=== PATIENT | female | born 1970 | race Caucasian/White ===

== ENCOUNTER 2019-12-18 13:02 | Emergency (ER) | payer BC ==
[~2019-12-18] VITALS: Ht 157.5 cm; Wt 72.7 kg
[2019-12-18 13:02] VITALS: BP 139/92
[2019-12-18] MEDS ORDERED: ONDANSETRON ODT 4 MG TAB.RAPDIS PO ONE (13:15)
[2019-12-18] MEDS ORDERED: HYDROcodone/APAP 5/325MG 1 TAB TABLET PO ONE (13:15)
--- NOTE | 2019-12-18 13:23 | PHYS DOC ---
Adult General Chief Complaint Chief Complaint: WRIST PAIN [facility] HPI 49-year-old female presents with right hand, wrist, and elbow pain. The patient was on a stepladder when she missed the last step and fell backwards. She stuck out her right hand to catch herself and landed with her weight on her right arm and hand. She currently has pain in the right thumb and right wrist, up to the elbow. She also hit her left knee a little bit, but is able to walk and is not worried about that. She rates the pain as severe. She does not want to move her hand or wrist. She did not hit her head. She denies loss of consciousness. She has no other complaints at this time. Review of Systems Review of Systems Constitutional: Denies fever or chills [] Eyes: Denies change in visual acuity, redness, or eye pain [] HENT: Denies nasal congestion or sore throat [] Respiratory: Denies cough or shortness of breath [] Cardiovascular: No additional information not addressed in HPI [] GI: Denies abdominal pain, nausea, vomiting, bloody stools or diarrhea [] : Denies dysuria or hematuria [] Musculoskeletal: Right hand wrist and elbow pain[] Integument: Denies rash or skin lesions [] Neurologic: Denies headache, focal weakness or sensory changes [] Endocrine: Denies polyuria or polydipsia [] All other systems were reviewed and found to be within normal limits, except as documented in this note. Physical Exam Physical Exam Constitutional: Well developed, well nourished, no acute distress, non-toxic appearance. [] HENT: Normocephalic, atraumatic, bilateral external ears normal, oropharynx moist, no oral exudates, nose normal. [] Eyes: PERRLA, EOMI, conjunctiva normal, no discharge. [] Neck: Normal range of motion, no tenderness, supple, no stridor. [] Cardiovascular:Heart rate regular rhythm, no murmur [] Lungs & Thorax: Bilateral breath sounds clear to auscultation [] Abdomen: Bowel sounds normal, soft, no tenderness, no masses, no pulsatile masses. [] Skin: Warm, dry, no erythema, no rash. [] Back: No tenderness, no CVA tenderness. [] Extremities: Right hand and wrist pain with even minimal movement. Exam mostly deferred due to pain.[] Neurologic: Alert and oriented X 3, normal motor function, normal sensory function, no focal deficits noted. [] Psychologic: Affect normal, judgement normal, mood normal. [] EKG EKG [] Radiology/Procedures Radiology/Procedures [] Impressions: EXAM: AP, lateral and radial head views of the right elbow DATE: 12/18/2019 1:14 PM INDICATION: Fall, right elbow pain COMPARISON: No Prior FINDINGS: Deformity of the right radial head with mild articular surface collapse/depression. No significant right elbow joint effusion is seen. No right elbow joint dislocation. IMPRESSION: 1. Deformity of the right radial head with mild articular surface collapse/depression may be chronic as no significant right elbow joint effusion is seen. However acute fracture is not excluded and if further imaging is required, CT would provide additional details. Electronically signed by: Nick Bhatti MD (12/18/2019 1:49 PM) [id number] DICTATED AND SIGNED BY: NICK BHATTI MD DATE: 12/18/19 1348 CC: PARESH ELIAS DO; ASHTYN WINTER MD ~ EXAM: 1. 3 views right hand 2. 3 views right wrist DATE: 12/18/2019 1:11 PM INDICATION: Right hand and wrist pain after fall COMPARISON: No Prior FINDINGS: No evidence of acute fracture or dislocation. 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 Soft tissue swelling about the right wrist. IMPRESSION: No evidence of acute fracture or dislocation. If there is persistent clinical concern for fracture, follow-up radiographs in 10-14 days is recommended. Electronically signed by: Nick Bhatti MD (12/18/2019 1:45 PM) [email or web address] DICTATED AND SIGNED BY: NICK BHATTI MD DATE: 12/18/19 1341 CC: PARESH ELIAS DO; ASHTYN WINTER MD ~ Course & Med Decision Making Course & Med Decision Making Pertinent Labs and Imaging studies reviewed. (See chart for details) The patient's x-rays are negative for acute fracture. There is some collapse of the radial head joint. See official report for details. The patient has no significant pain at the base of the thumb. I will place her in a thumb spica splint at this time and discharge her with pain medication. If her pain does not improve in the next 1 week, she will seek further evaluation and imaging. She is stable for discharge at this time. [] Dragon Disclaimer Dragon Disclaimer This electronic medical record was generated, in whole or in part, using a voice recognition dictation system. Departure Departure: Impression: Primary Impression: Right wrist sprain Additional Impression: Fall from ladder Disposition: 01 HOME, SELF-CARE Condition: STABLE Referrals: ASHTYN WINTER MD (PCP) Patient Instructions: Wrist Sprain with [facility]hab[facility] Scripts Hydrocodone Bit/Acetaminophen (NORCO 5-325 TABLET) 1 Each Tablet 1-2 TAB PO PRN Q6HRS PRN for PAIN, #20 TAB 0 Refills Prov: PARESH ELIAS DO 12/18/19 Problem Qualifiers Primary Impression: Right wrist sprain Encounter type: initial encounter Qualified Codes: S63.501A - Unspecified sprain of right wrist, initial encounter Additional Impression: Fall from ladder Encounter type: initial encounter Qualified Codes: W11.XXXA - Fall on and from ladder, initial encounter PARESH ELIAS DO Dec 18, 2019 13:23
--- NOTE | 2019-12-18 13:48 | RAD ---
EXAM: 1. 3 views right hand 2. 3 views right wrist DATE: 12/18/2019 1:11 PM INDICATION: Right hand and wrist pain after fall COMPARISON: No Prior FINDINGS: No evidence of acute fracture or dislocation. 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 Soft tissue swelling about the right wrist. IMPRESSION: No evidence of acute fracture or dislocation. If there is persistent clinical concern for fracture, follow-up radiographs in 10-14 days is recommended. Electronically signed by: Nick Bhatti MD (12/18/2019 1:45 PM) [email or web address]
--- NOTE | 2019-12-18 13:52 | RAD ---
EXAM: AP, lateral and radial head views of the right elbow DATE: 12/18/2019 1:14 PM INDICATION: Fall, right elbow pain COMPARISON: No Prior FINDINGS: Deformity of the right radial head with mild articular surface collapse/depression. No significant right elbow joint effusion is seen. No right elbow joint dislocation. IMPRESSION: 1. Deformity of the right radial head with mild articular surface collapse/depression may be chronic as no significant right elbow joint effusion is seen. However acute fracture is not excluded and if further imaging is required, CT would provide additional details. Electronically signed by: Nick Bhatti MD (12/18/2019 1:49 PM) [email or web address]
[2019-12-18] MEDS ORDERED: HYDR-3165 PO (14:13)
[2019-12-18] MEDS ORDERED: MORPHINE SULFATE 4 MG/ML DISP.SYRIN. ONE (14:13)
[2019-12-18] MEDS ORDERED: MORPHINE SULFATE 4 MG/ML DISP.SYRIN. IM ONE (14:15)
== END 2019-12-18 14:49 | disposition home or self-care (01) ==
LOC: ER 13:02
DX: S63.501A Unspecified sprain of right wrist, initial encounter (principal); M25.521 Pain in right elbow; W11.XXXA Fall on and from ladder, initial encounter; Y93.89 Activity, other specified; Y92.89 Other specified places as the place of occurrence of the external cause; Y99.8 Other external cause status
CPT/HCPCS: 29125; 73080; 73110; 73130; 96372; 99284; J2270; Q0162